=== PATIENT | female | born 1995 | race African-American/Black ===

== ENCOUNTER 2016-09-17 13:12 | Emergency (ER) | payer SELFPAY ==
[2016-09-17 14:30] VITALS: BP 100/59
== END 2016-09-17 13:43 | disposition left against medical advice (07) ==
LOC: ER 13:12
DX: Z53.21 Procedure and treatment not carried out due to patient leaving prior to being seen by health care provider (principal)

== ENCOUNTER 2016-10-01 18:17 | Emergency (ER) | payer SELFPAY ==
[2016-10-01 19:13] VITALS: BP 105/62
[2016-10-01] MEDS ORDERED: OXYCODONE-ACETAMINOPHEN 5-325 MG TABLET PO ONE ×2 (20:11→20:13)
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
[2016-10-01] MEDS ORDERED: HYDROCODONE/ACETAMINOPHEN 5-325 MG 6 TAB/DSPK PO PRN (23:01)
[2016-10-01] MEDS ORDERED: ONDANSETRON ODT 4 MG TAB (6 TAB/DSPK) PO PRN (23:01)
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
== END 2016-10-01 23:18 | disposition home or self-care (01) ==
LOC: ER 18:17
DX: S09.90XA Unspecified injury of head, initial encounter (principal); S10.93XA Contusion of unspecified part of neck, initial encounter; S99.911A Unspecified injury of right ankle, initial encounter; R51 Headache; M54.2 Cervicalgia; M25.571 Pain in right ankle and joints of right foot; M25.551 Pain in right hip; Y09 Assault by unspecified means; F17.210 Nicotine dependence, cigarettes, uncomplicated
CPT/HCPCS: 72050; 99283

== ENCOUNTER 2016-11-01 13:56 | Emergency (ER) | payer SELFPAY ==
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
[2016-11-01] MEDS ORDERED: METHOCARBAMOL 500 MG TABLET PO ONE (16:12)
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
[2016-11-01] MEDS ORDERED: NAPROXEN 250 MG TABLET PO ONE (16:29)
[2016-11-01 17:19] VITALS: BP 120/70
== END 2016-11-01 17:19 | disposition home or self-care (01) ==
LOC: ER 13:56
DX: S00.81XA Abrasion of other part of head, initial encounter (principal); S10.91XA Abrasion of unspecified part of neck, initial encounter; S00.83XA Contusion of other part of head, initial encounter; M62.838 Other muscle spasm; Y04.2XXA Assault by strike against or bumped into by another person, initial encounter; F17.200 Nicotine dependence, unspecified, uncomplicated; Z88.6 Allergy status to analgesic agent
CPT/HCPCS: 70486; 72050; 99284

== ENCOUNTER 2017-02-03 00:46 | Emergency (ER) | payer SELFPAY ==
[2017-02-03] MEDS ORDERED: NORMAL SALINE 1000 ML 1,000 ML IV ONE ×2 (05:09→06:28)
[2017-02-03] MEDS ORDERED: METOCLOPRAMIDE HCL INJ/PF 10 MG/2 ML SDV IV ONE (05:58)
--- NOTE | 2017-02-03 05:58 | ER Document Report ---
ED General - General Chief Complaint: Nausea/Vomiting/Diarrhea Stated Complaint: VOMITING/7 WEEKS Time Seen by Provider: 02/03/17 05:58 Mode of Arrival: Ambulatory Information source: Patient Notes: 21-year-old female who is 7 weeks presents with complaints of nausea and vomiting. Patient is 3 para 2 states she has been vomiting since yesterday. Denies any fevers or chills admits to intermittent sweating when she is vomiting TRAVEL OUTSIDE OF THE [place] IN LAST 30 DAYS: No - HPI Onset: Yesterday Onset/Duration: Sudden Quality of pain: No pain Severity: Mild Pain Level: Denies Associated symptoms: Nausea, Vomiting, Sweating Exacerbated by: Denies Relieved by: Denies Similar symptoms previously: No Recently seen / treated by doctor: No - Related Data Allergies/Adverse Reactions: hydrocodone [From Vicodin] Allergy (Verified 11/01/16 14:33) tramadol Allergy (Verified 11/01/16 14:33) Past Medical History - Social History Smoking Status: Never Smoker Cigarette use (# per day): No Chew tobacco use (# tins/day): No Smoking Education Provided: No Family History: Reviewed & Not Pertinent Patient has suicidal ideation: No Patient has homicidal ideation: No Neurological Medical History: Reports: 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 06/03 states had three seizures Renal/ Medical History: Denies: Hx Peritoneal Dialysis Psychiatric Medical History: Reports: Hx Attention Deficit Hyperactivity Disorder Past Surgical History: Reports: Hx Section - Immunizations Immunizations up to date: No Hx Diphtheria, Pertussis, Tetanus Vaccination: No Review of Systems - Review of Systems Notes: REVIEW OF SYSTEMS: CONSTITUTIONAL : Denies fever, chills, or sweats. Denies recent illness. EENT: Denies eye, ear, throat, or mouth pain or symptoms. Denies nasal or sinus congestion or discharge. Denies throat, tongue, or mouth swelling or difficulty swallowing. CARDIOVASCULAR: Denies chest pain. Denies palpitations or racing or irregular heart beat. Denies ankle edema. RESPIRATORY: Denies cough, cold, or chest congestion. Denies shortness of breath, difficulty breathing, or wheezing. GASTROINTESTINAL: Admits to nausea and vomiting GENITOURINARY: Denies difficulty urinating, painful urination, burning, frequency, blood in urine, or discharge. FEMALE GENITOURINARY: Denies vaginal bleeding, heavy or abnormal periods, irregular periods. Denies vaginal discharge or odor. MUSCULOSKELETAL: Denies back or neck pain or stiffness. Denies joint pain or swelling. SKIN: Denies rash, lesions or sores. HEMATOLOGIC : Denies easy bruising or bleeding. LYMPHATIC: Denies swollen, enlarged glands. NEUROLOGICAL: Denies confusion or altered mental status. Denies passing out or loss of consciousness. Denies dizziness or lightheadedness. Denies headache. Denies weakness or paralysis or loss of use of either side. Denies problems with gait or speech. Denies sensory loss, numbness, or tingling. Denies seizures. PSYCHIATRIC: Denies anxiety or stress. Denies depression, suicidal ideation, or homicidal ideation. ALL OTHER SYSTEMS REVIEWED AND NEGATIVE. PHYSICAL EXAMINATION: GENERAL: Well-appearing, well-nourished and in no acute distress. HEAD: Atraumatic, normocephalic. EYES: Pupils equal round and reactive to light, extraocular movements intact, conjunctiva are normal. ENT: Nares patent, oropharynx clear without exudates. Moist mucous membranes. NECK: Normal range of motion, supple without lymphadenopathy LUNGS: Breath sounds clear to auscultation bilaterally and equal. No wheezes rales or rhonchi. HEART: Regular rate and rhythm without murmurs ABDOMEN: Soft, nontender, nondistended abdomen. No guarding, no rebound. No masses appreciated. Female : deferred Musculoskeletal: Normal range of motion, no pitting or edema. No cyanosis. NEUROLOGICAL: Cranial nerves grossly intact. Normal speech, normal gait. Normal sensory, motor exams PSYCH: Normal mood, normal affect. SKIN: Warm, Dry, normal turgor, no rashes or lesions noted. Dictation was performed using nGAP voice recognition software Physical Exam - Vital signs Vitals: Temp Pulse Resp BP Pulse Ox 97.7 F 73 18 118/71 100 02/03/17 00:56 02/03/17 00:56 02/03/17 00:56 02/03/17 00:56 02/03/17 00:56 Course - Re-evaluation Re-evalutation: 02/03/17 08:52 Patient is noted to have ketones in the urine as well as a urinary tract infection. She will be started on antibiotics, and IV fluids and will be sent home with nausea medication as well otherwise patient looks well is in no distress and wishes to be discharged After performing a Medical Screening Examination, I estimate there is LOW risk for ACUTE APPENDICITIS, BOWEL OBSTRUCTION, ACUTE CHOLECYSTITIS, PERFORATED DIVERTICULITIS, INCARCERATED HERNIA, PANCREATITIS, PELVIC INFLAMMATORY DISEASE, PERFORATED ULCER, ECTOPIC , or TUBO-OVARIAN ABSCESS, thus I consider the discharge disposition reasonable. Also, there is no evidence or peritonitis , sepsis, or toxicity. I have reevaluated this patient multiple times and no significant life threatening changes are noted. The patient and I have discussed the diagnosis and risks, and we agree with discharging home with close follow-up with the understanding that symptoms and presentations can change. We also discussed returning to the Emergency Department immediately if new or worsening symptoms occur. We have discussed the symptoms which are most concerning (e.g., bloody stool, fever, changing or worsening pain, vomiting) that necessitate immediate return. - Vital Signs Vital signs: Temp Pulse Resp BP Pulse Ox 98.4 F 62 20 111/67 100 02/03/17 08:25 02/03/17 08:25 02/03/17 08:25 02/03/17 08:25 02/03/17 08:25 - Laboratory Result Diagrams: 02/03/17 06:58 02/03/17 06:58 Laboratory results interpreted by me: 02/03/17 02/03/17 02/03/17 05:56 06:58 06:58 WBC 11.0 H Hgb 11.5 L Hct 34.6 L RDW 21.1 H Seg Neutrophils % 89.3 H Lymphocytes % 9.0 L Monocytes % 1.5 L Absolute Neutrophils 9.8 H Chloride 108 H Carbon Dioxide 17 L Urine Protein 100 H Urine Ketones 80 H Ur Leukocyte Esterase SMALL H Urine Ascorbic Acid 20 H Urine HCG, Qual POSITIVE H Discharge - Discharge Clinical Impression: Ketonuria UTI in Qualifiers: Trimester: first trimester Qualified Code(s): O23.41 - Unspecified infection of urinary tract in , first trimester Nausea & vomiting Qualifiers: Vomiting type: unspecified Vomiting Intractability: non-intractable Qualified Code(s): R11.2 - Nausea with vomiting, unspecified Condition: Stable Disposition: HOME, SELF-CARE Instructions: Urinary Tract Infection ([facility]) Prescriptions: Metoclopramide HCl [Reglan 10 mg Tablet] 1 - 2 tab PO ASDIR PRN #25 tablet PRN Reason: Nitrofurantoin/Nitrofuran Mac [Macrobid 100 mg Capsule] 1 tab PO BID #20 capsule Referrals: [facility] [Provider Group] - Follow up tomorrow
[2017-02-03] MEDS ORDERED: ACETAMINOPHEN 325 MG TABLET PO ONE (06:11)
[2017-02-03 06:26] LABS: BILIRUBIN,URINE NEGATIVE (NEGATIVE); GLUCOSE, URINE NEGATIVE (NEGATIVE); KETONES,URINE 80 mg/dL (NEGATIVE); LEUKOCYTE ESTERASE,URINE SMALL (NEGATIVE); NITRITE,URINE NEGATIVE (NEGATIVE); PROTEIN,URINE 100 mg/dL (NEGATIVE); URINE SPECIFIC GRAVITY 1.027; UROBILINOGEN,URINE NEGATIVE mg/dL (<2.0)
[2017-02-03 06:27] LABS: APPEARANCE,URINE SLIGHTLY-CLOUDY
[2017-02-03] MEDS ORDERED: NITROFURANTOIN MONOHYD/M-CRYST 100 MG CAPSULE PO ONE (06:40)
[2017-02-03 07:10] LABS: ABSOLUTE MONOCYTES (AUTO) 0.2 10^3/uL (0.1-1.4); ABSOLUTE NEUT (AUTO) 9.8 10^3/uL (1.7-8.2); BASOPHILS % (AUTO) 0.2 % (0-2); HEMATOCRIT 34.6 % (36.0-47.0); HEMOGLOBIN 11.5 g/dL (12.0-15.5); HGB HCT DIFFERENCE -0.1; MEAN CORPUSCULAR HEMOGLOBIN 28.2 pg (27.0-33.4); MEAN CORPUSCULAR HGB CONC 33.1 g/dL (32.0-36.0); MEAN CORPUSCULAR VOLUME 85 fl (80-97); MONOCYTES % (AUTO) 1.5 % (3-13); RED BLOOD COUNT 4.07 10^6/uL (3.72-5.28); RED CELL DISTRIBUTION WIDTH 21.1 % (11.5-14.0); SEGMENTED NEUTROPHILS % (AUTO) 89.3 % (42-78)
[2017-02-03 07:26] LABS: ALANINE AMINOTRANSFERASE 15 U/L (9-52); ALBUMIN 4.5 g/dL (3.5-5.0); ALKALINE PHOSPHATASE 68 U/L (38-126); ANION GAP 15 (5-19); ASPARTATE AMINO TRANSFERASE 22 U/L (14-36); BILIRUBIN,DIRECT 0.4 mg/dL (0.0-0.4); BILIRUBIN,TOTAL 0.6 mg/dL (0.2-1.3); BLOOD UREA NITROGEN 9 mg/dL (7-20); CALCIUM 9.1 mg/dL (8.4-10.2); CARBON DIOXIDE 17 mmol/L (22-30); CHLORIDE 108 mmol/L (98-107); CREATININE RESULT 0.53 mg/dL (0.52-1.25); GLUCOSE 100 mg/dL (75-110); POTASSIUM 3.9 mmol/L (3.6-5.0); SODIUM 139.9 mmol/L (137-145); TOTAL PROTEIN 7.7 g/dL (6.3-8.2)
[2017-02-03 08:26] VITALS: BP 111/67
== END 2017-02-03 08:30 | disposition home or self-care (01) ==
LOC: ER 00:46
DX: O21.9 Vomiting of pregnancy, unspecified (principal); O23.41 Unspecified infection of urinary tract in pregnancy, first trimester; O26.891 Other specified pregnancy related conditions, first trimester; R61 Generalized hyperhidrosis; R82.4 Acetonuria; Z3A.01 Less than 8 weeks gestation of pregnancy; Z88.5 Allergy status to narcotic agent
CPT/HCPCS: 99284; 96361; 96374; 36415; 87086; 85025; 81025; 80053; 81001; J2765; J7030; J8499

== ENCOUNTER 2017-02-11 12:13 | Emergency (ER) | payer SELFPAY ==
[2017-02-11] MEDS ORDERED: POLYMYXIN B SULFATE/TMP OPH SOLN 10 ML OS ONE (14:53)
[2017-02-11] MEDS ORDERED: OXYCODONE-ACETAMINOPHEN 5-325 MG TABLET PO ONE (14:53)
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
[2017-02-11 16:33] VITALS: BP 97/58
== END 2017-02-11 16:38 | disposition home or self-care (01) ==
LOC: ER 12:13
DX: S00.12XA Contusion of left eyelid and periocular area, initial encounter (principal); S00.83XA Contusion of other part of head, initial encounter; S90.511A Abrasion, right ankle, initial encounter; Y04.2XXA Assault by strike against or bumped into by another person, initial encounter; Y92.009 Unspecified place in unspecified non-institutional (private) residence as the place of occurrence of the external cause; H57.10 Ocular pain, unspecified eye; F17.210 Nicotine dependence, cigarettes, uncomplicated; Z71.6 Tobacco abuse counseling; Z88.5 Allergy status to narcotic agent
CPT/HCPCS: 99284; 70486; J3490

== ENCOUNTER 2017-03-07 15:15 | Emergency (ER) | payer OTHER ==
[2017-03-07] MEDS ORDERED: SILVER SULFADIAZINE 1% CREAM 50 GM TP ONE ×2 (16:00→17:37)
[2017-03-07] MEDS ORDERED: LIDOCAINE 4% INJ/PF (40 MG/ML) 5 ML AMPUL TOP ONE (16:00)
[2017-03-07] MEDS ORDERED: MORPHINE SULFATE 10 MG/ML INJ IM ONE (16:01)
[2017-03-07] MEDS ORDERED: CEPHALEXIN 500 MG CAPSULE PO ONE (16:01)
[2017-03-07] MEDS ORDERED: LIDOCAINE 4%/TETRACAINE 0.5%/EPI 0.18% 5 ML TOPICAL SOLN TOP ONE (16:09)
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
== END 2017-03-07 18:10 | disposition home or self-care (01) ==
LOC: ER 15:15
DX: S80.211A Abrasion, right knee, initial encounter (principal); S30.810A Abrasion of lower back and pelvis, initial encounter; S20.419A Abrasion of unspecified back wall of thorax, initial encounter; W17.89XA Other fall from one level to another, initial encounter; Y93.39 Activity, other involving climbing, rappelling and jumping off
CPT/HCPCS: 99283; 96372; J2270; J3490 ×2

== ENCOUNTER 2017-03-11 21:03 | Emergency (ER) | payer SELFPAY | END 2017-03-11 21:25 | disposition left against medical advice (07) | LOC: ER 21:03 | DX: Z53.21 Procedure and treatment not carried out due to patient leaving prior to being seen by health care provider (principal) ==

== ENCOUNTER → 2017-04-03 | Outpatient (CLI) | payer MEDICAID ==
--- NOTE | 2017-04-05 15:09 | RADIOLOGY REPORT (SQ) ---
EXAM DESCRIPTION: U/S OB 14+ TRNABD 1GES W/O DOP COMPLETED DATE/TIME: 04/03/2017, 1541 hours REASON FOR STUDY: Encounter for supervision of other normal , second trimester COMPARISON: No previous this TECHNIQUE: Transabdominal and endovaginal scanning was performed, including grayscale, color flow, a nd cine images saved to pacs LIMITATIONS: Limited view of the 4 chamber cardiac view, kidneys, bladder, posterior fossa str uctures related to small size and movement. FINDINGS: Living 15 week 5 day fetus, estimated due date 09/20/2017. heart rate 147 beats per m inute. Anatomic survey including three-vessel cord, cord insertion, stomach, spine, cerebral ventricles, claire ateral upper and lower extremities well-visualized cava normal. Limited view of posterior fossa stru ctures, 4 chamber cardiac view, kidneys, bladder. Variable presentation Adequate amniotic fluid, largest pocket 3.7 cm. Low lying anterior maternal left placenta, with marginal previa on endovaginal scanning. Cervix is closed, 5.5 cm in length. IMPRESSION: Low-lying anterior placenta, with marginal previa on endovaginal scanning. Living 15 week 5 day fetus, due date 09/20/2017.
== END ==
LOC: RAD 14:54
PROVIDERS: ATTEND Nurse Practitioner Women's Health
DX: Z34.82 Encounter for supervision of other normal pregnancy, second trimester (principal)
CPT/HCPCS: 76805

== ENCOUNTER 2017-05-04 06:28 | Emergency (ER) | payer MEDICAID ==
[2017-05-04 06:36] VITALS: BP 120/67
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
[2017-05-04] MEDS ORDERED: ACETAMINOPHEN 325 MG TABLET PO ONE (07:47)
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
== END 2017-05-04 08:39 | disposition home or self-care (01) ==
LOC: ER 06:28
DX: S00.12XA Contusion of left eyelid and periocular area, initial encounter (principal); S09.93XA Unspecified injury of face, initial encounter; F17.210 Nicotine dependence, cigarettes, uncomplicated; Y04.2XXA Assault by strike against or bumped into by another person, initial encounter; Z88.6 Allergy status to analgesic agent
CPT/HCPCS: 99284; 70200; J3490

== ENCOUNTER 2017-06-02 16:45 | Inpatient (IN) | payer MEDICAID ==
[2017-06-02] MEDS ORDERED: ONDANSETRON HCL INJ/PF 4 MG/2 ML SDV IV ONE (17:07)
[2017-06-02] MEDS ORDERED: NORMAL SALINE 1000 ML 1,000 ML IV PRN ×2 (17:07→18:54)
--- NOTE | 2017-06-02 17:10 | ER Document Report ---
ED Medical Screen (RME) - General Chief Complaint: Vomiting/Diarrhea Stated Complaint: POSSIBLE DEHYDRATION Time Seen by Provider: 06/02/17 17:07 Mode of Arrival: Ambulatory Information source: Patient TRAVEL OUTSIDE OF THE [place] IN LAST 30 DAYS: No - HPI Patient complains to provider of: Nausea, vomiting, diarrhea, fever Notes: 06/02/17 17:10 Patient is a 21-year-old female presenting to the emergency room today complaining of nausea, vomiting, diarrhea, urinary frequency, noted to have a fever in triage area, she is currently 23 weeks , she denies any pelvic cramping or bleeding - Related Data Allergies/Adverse Reactions: hydrocodone [From Vicodin] Allergy (Verified 06/02/17 16:57) tramadol Allergy (Verified 06/02/17 16:57) Past Medical History Neurological Medical History: Reports: 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 06/03 states had three seizures Renal/ Medical History: Denies: Hx Peritoneal Dialysis Psychiatric Medical History: Reports: Hx Anxiety, Hx Attention Deficit Hyperactivity Disorder Past Surgical History: Reports: Hx Section - Immunizations Immunizations up to date: Yes Hx Diphtheria, Pertussis, Tetanus Vaccination: Yes - 2016 Physical Exam - Vital signs Vitals: Temp Pulse Resp BP Pulse Ox 101.4 F H 108 H 18 116/59 L 97 06/02/17 16:57 06/02/17 16:57 06/02/17 16:57 06/02/17 16:57 06/02/17 16:57 Course - Vital Signs Vital signs: Temp Pulse Resp BP Pulse Ox 101.4 F H 108 H 18 116/59 L 97 06/02/17 16:57 06/02/17 16:57 06/02/17 16:57 06/02/17 16:57 06/02/17 16:57
[2017-06-02 18:06] LABS: APPEARANCE,URINE CLOUDY; BILIRUBIN,URINE NEGATIVE (NEGATIVE); GLUCOSE, URINE NEGATIVE (NEGATIVE); KETONES,URINE 20 mg/dL (NEGATIVE); LEUKOCYTE ESTERASE,URINE SMALL (NEGATIVE); NITRITE,URINE NEGATIVE (NEGATIVE); PROTEIN,URINE 100 mg/dL (NEGATIVE); URINE SPECIFIC GRAVITY 1.016
[2017-06-02 18:48] LABS: HEMATOCRIT 24.4 % (36.0-47.0); HEMOGLOBIN 8.6 g/dL (12.0-15.5); HGB HCT DIFFERENCE 1.4; MEAN CORPUSCULAR HEMOGLOBIN 31.2 pg (27.0-33.4); MEAN CORPUSCULAR HGB CONC 35.3 g/dL (32.0-36.0); MEAN CORPUSCULAR VOLUME 88 fl (80-97); RED BLOOD COUNT 2.77 10^6/uL (3.72-5.28); RED CELL DISTRIBUTION WIDTH 14.8 % (11.5-14.0); WHITE BLOOD COUNT 16.9 10^3/uL (4.0-10.5)
[2017-06-02] MEDS ORDERED: ACETAMINOPHEN 325 MG TABLET PO ONE (18:52)
[2017-06-02 19:05] LABS: ALANINE AMINOTRANSFERASE 17 U/L (9-52); ALBUMIN 3.3 g/dL (3.5-5.0); ALKALINE PHOSPHATASE 97 U/L (38-126); ANION GAP 12 (5-19); ASPARTATE AMINO TRANSFERASE 16 U/L (14-36); BAND NEUTROPHILS % (MANUAL) 2 % (3-5); BASOPHILS % (MANUAL) 0 % (0-2); BILIRUBIN,DIRECT 0.5 mg/dL (0.0-0.4); BILIRUBIN,TOTAL 0.7 mg/dL (0.2-1.3); BLOOD UREA NITROGEN 4 mg/dL (7-20); CALCIUM 8.3 mg/dL (8.4-10.2); CARBON DIOXIDE 19 mmol/L (22-30); CHLORIDE 102 mmol/L (98-107); EOSINOPHILS % (MANUAL) 0 % (0-6); GLUCOSE 79 mg/dL (75-110); LIPASE 12.5 U/L (23-300); LYMPHOCYTES % (MANUAL) 12 % (13-45); POTASSIUM 3.3 mmol/L (3.6-5.0); SODIUM 133.2 mmol/L (137-145); TOTAL CELLS COUNTED 100; TOTAL PROTEIN 6.3 g/dL (6.3-8.2)
[2017-06-02 19:08] LABS: ANISOCYTOSIS SLIGHT; OVALOCYTES 1+; POIKILOCYTOSIS 1+; POLYCHROMASIA 1+; TOXIC VACUOLATION PRESENT
[2017-06-02] MEDS ORDERED: CEFTRIAXONE INJ 1000 MG VIAL IV ONE (19:08)
--- NOTE | 2017-06-02 19:16 | ER Document Report ---
ED GI/ - General Chief Complaint: Vomiting/Diarrhea Stated Complaint: POSSIBLE DEHYDRATION Time Seen by Provider: 06/02/17 17:07 Mode of Arrival: Ambulatory Information source: Patient TRAVEL OUTSIDE OF THE [place] IN LAST 30 DAYS: No - HPI Patient complains to provider of: Dysuria, Flank pain, , Vomiting Timing/Duration: Gradual Quality of pain: Achy Severity at maximum: Moderate Severity in ED: Moderate Pain Level: 3 Location: Right flank Menstrual period history: Associated symptoms: Fever, Nausea, Vomiting Exacerbated by: Denies Relieved by: Denies Similar symptoms previously: No Notes: 17:10 Patient is a 21-year-old female presenting to the emergency room today complaining of nausea, vomiting, diarrhea, urinary frequency with low back pain and flank pain, noted to have a fever in triage area, she is currently 23 weeks , she denies any pelvic cramping or bleeding - Related Data Allergies/Adverse Reactions: hydrocodone [From Vicodin] Allergy (Verified 06/02/17 16:57) tramadol Allergy (Verified 06/02/17 16:57) Past Medical History - General Information source: Patient - Social History Smoking Status: Current Every Day Smoker Chew tobacco use (# tins/day): No Frequency of alcohol use: None Drug Abuse: None Family History: Hypertension, Malignancy. denies: Arthritis, CAD, COPD, CVA, DM , Hyperlipidemia, Thyroid Disfunction Neurological Medical History: Reports: 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 06/03 states had three seizures Renal/ Medical History: Denies: Hx Peritoneal Dialysis Psychiatric Medical History: Reports: Hx Anxiety, Hx Attention Deficit Hyperactivity Disorder Past Surgical History: Reports: Hx Section - Immunizations Immunizations up to date: Yes Hx Diphtheria, Pertussis, Tetanus Vaccination: Yes - 2017 Review of Systems - Review of Systems Constitutional: Fever EENT: No symptoms reported Cardiovascular: No symptoms reported Respiratory: No symptoms reported Gastrointestinal: See HPI Genitourinary: See HPI Female Genitourinary: No symptoms reported Musculoskeletal: No symptoms reported Skin: No symptoms reported Hematologic/Lymphatic: No symptoms reported Neurological/Psychological: No symptoms reported -: Yes All other systems reviewed and negative Physical Exam - Vital signs Vitals: Temp Pulse Resp BP Pulse Ox 101.4 F H 108 H 18 116/59 L 97 06/02/17 16:57 06/02/17 16:57 06/02/17 16:57 06/02/17 16:57 06/02/17 16:57 Interpretation: Tachycardic, Febrile - General General appearance: Appears well, Alert - HEENT Head: Normocephalic, Atraumatic Eyes: Normal Pupils: PERRL - Respiratory Respiratory status: No respiratory distress Chest status: Nontender Breath sounds: Normal Chest palpation: Normal - Cardiovascular Rhythm: Regular Heart sounds: Normal auscultation Murmur: No - Abdominal Inspection: Gravid female Distension: No distension Bowel sounds: Normal Tenderness: Tender - Suprapubic Organomegaly: No organomegaly - Back Back: Normal, CVA tenderness - Right side - Extremities General upper extremity: Normal inspection, Nontender, Normal color, Normal ROM , Normal temperature General lower extremity: Normal inspection, Nontender, Normal color, Normal ROM , Normal temperature, Normal weight bearing. No: Jonathon's sign - Neurological Neuro grossly intact: Yes Cognition: Normal Orientation: AAOx4 [place] Coma Scale Eye Opening: Spontaneous Camila Coma Scale Verbal: Oriented Camila Coma Scale Motor: Obeys Commands Cam[place] Coma Scale Total: 15 Speech: Normal Motor strength normal: LUE, RUE, LLE, RLE Sensory: Normal - Psychological Associated symptoms: Normal affect, Normal mood - Skin Skin Temperature: Warm Skin Moisture: Dry Skin Color: Normal Course - Re-evaluation Re-evalutation: 06/02/17 19:44 Patient lab values with leukocytosis, positive for UTI, as well as low bicarb consistent with dehydration, on initial evaluation patient had flank pain with right CVA tenderness, on reevaluation she does report feeling much better, however given her symptoms and lab values I did discuss patient with the on- call TELEPHONE OPERATORS SUPERVISOR who agrees to admit for further evaluation and treatment of likely pyelonephritis, recommended antibiotics be given with Rocephin 1 g every 12 hours, initial dose has been ordered in the emergency room - Vital Signs Vital signs: Temp Pulse Resp BP Pulse Ox 101.4 F H 108 H 18 116/59 L 97 06/02/17 16:57 06/02/17 16:57 06/02/17 16:57 06/02/17 16:57 06/02/17 16:57 - Laboratory Result Diagrams: 06/02/17 18:20 06/02/17 18:20 Laboratory results interpreted by me: 06/02/17 06/02/17 06/02/17 17:30 18:20 18:20 WBC 16.9 H RBC 2.77 L Hgb 8.6 L Hct 24.4 L RDW 14.8 H Seg Neuts % (Manual) 82 H Band Neutrophils % 2 L Lymphocytes % (Manual) 12 L Abs Neuts (Manual) 14.2 H Sodium 133.2 L Potassium 3.3 L Carbon Dioxide 19 L BUN 4 L Calcium 8.3 L Direct Bilirubin 0.5 H Albumin 3.3 L Lipase 12.5 L Urine Protein 100 H Urine Ketones 20 H Urine Blood MODERATE H Urine Urobilinogen 4.0 H Ur Leukocyte Esterase SMALL H Urine Ascorbic Acid 20 H - Transfer of Care Care transferred to following provider: Dr. Graff Discharge - Discharge Clinical Impression: Dehydration Nausea and vomiting Qualifiers: Vomiting type: unspecified Vomiting Intractability: non-intractable Qualified Code(s): R11.2 - Nausea with vomiting, unspecified Pyelonephritis affecting Qualifiers: Trimester: second trimester Qualified Code(s): O23.02 - Infections of kidney in , second trimester Condition: Stable Disposition: ADMITTED INPATIENT Admitting Provider: [facility] Admitted: Labor and Delivery - 2nd floor
--- NOTE | 2017-06-02 23:07 | PDOC H&P ---
History of Present Illness Admission Date/PCP: 06/02/17 19:39 JOSE GUADALUPE JUNG MD History of Present Illness: SOURAV ALVAREZ is a 21 year old female 17:10 Patient is a 21-year-old female presenting to the emergency room today complaining of nausea, vomiting, diarrhea, urinary frequency with low back pain and flank pain, noted to have a fever in triage area, she is currently 23 weeks , she denies any pelvic cramping or bleeding found to have elevated WBC and CVA tenderness with 23 wk gestation. Past Medical History Neurological Medical History: Reports: Seizures - From Xanax withdrawal. states had three seizures Psychiatric Medical History: Reports: Attention Deficit Hyperactivity Disorder Past Surgical History Past Surgical History: Reports: Section Social History Smoking Status: Current Every Day Smoker - Advance Directive Resuscitation Status: Full Code Family History Family History: Hypertension, Malignancy. denies: Arthritis, CAD, COPD, CVA, DM , Hyperlipidemia, Thyroid Disfunction Parental Family History Reviewed: Yes Children Family History Reviewed: Yes Sibling(s) Family History Reviewed.: Yes Medication/Allergy Home Medications: No Home Medications 05/04/17 Allergies/Adverse Reactions: hydrocodone [From Vicodin] Allergy (Verified 06/02/17 16:57) tramadol Allergy (Verified 06/02/17 16:57) Review of Systems Constitutional: PRESENT: as per HPI Physical Exam - Physical Exam Vital Signs: Temp Pulse Resp BP Pulse Ox 101.4 F H 108 H 18 116/59 L 97 06/02/17 16:57 06/02/17 16:57 06/02/17 16:57 06/02/17 16:57 06/02/17 16:57 General appearance: PRESENT: mild distress Head exam: PRESENT: atraumatic GI/Abdominal exam: PRESENT: soft Musculoskeletal exam: PRESENT: ambulatory, full ROM Additional comments: CVA tenderness present on left - Obstetrical Exam Fundal Height: u/u - u/2 Tender: No Assessment & Plan - Diagnosis (1) Dehydration Is this a current diagnosis for this admission?: Yes (2) Nausea and vomiting Qualifiers: Vomiting type: unspecified Vomiting Intractability: non-intractable Qualified Code(s): R11.2 - Nausea with vomiting, unspecified Is this a current diagnosis for this admission?: Yes (3) Pyelonephritis affecting Qualifiers: Trimester: second trimester Qualified Code(s): O23.02 - Infections of kidney in , second trimester Is this a current diagnosis for this admission?: Yes - Inpatient Certification Based on my medical assessment, after consideration of the patient's comorbidities, presenting symptoms, or acuity I expect that the services needed warrant INPATIENT care.: Yes I certify that my determination is in accordance with my understanding of Medicare's requirements for reasonable and necessary INPATIENT services [42 CFR 412.3e].: Yes Medical Necessity: Need Close Monitoring Due to Risk of Patient Decompensation, Need For IV Fluids, Need for IV Antibiotics - increased risks of ARDS with pyelonephritis and 2nd trimester - Plan Summary Plan Summary: admit for IV antibiotics and antipyretics. monitor closely for decompensation and ARDS signs/symptoms. d/c home when improves.
[2017-06-03] MEDS ORDERED: INFLUENZA ADLT QUAD (36MOS+) 2017-18 VAC 0.5 ML SYR IM PRN ×2 (00:01→08:30)
[2017-06-03] MEDS: RINGERS SOLUTION,LACTATED 1,000 ML IV PRN ×4 (00:37→23:40)
[2017-06-03] MEDS: ACETAMINOPHEN 325 MG TABLET PO SCH ×3 (06:53→17:53)
[2017-06-03 07:09] LABS: ABSOLUTE MONOCYTES (AUTO) 0.8 10^3/uL (0.1-1.4); ABSOLUTE NEUT (AUTO) 9.1 10^3/uL (1.7-8.2); BASOPHILS % (AUTO) 0.2 % (0-2); EOSINOPHILS % (AUTO) 0.2 % (0-6); HEMATOCRIT 20.3 % (36.0-47.0); HGB HCT DIFFERENCE 1.3; LYMPHOCYTES % (AUTO) 9.3 % (13-45); MEAN CORPUSCULAR HEMOGLOBIN 31.6 pg (27.0-33.4); MEAN CORPUSCULAR HGB CONC 35.7 g/dL (32.0-36.0); MEAN CORPUSCULAR VOLUME 89 fl (80-97); MONOCYTES % (AUTO) 7.2 % (3-13); RED BLOOD COUNT 2.29 10^6/uL (3.72-5.28); RED CELL DISTRIBUTION WIDTH 15.2 % (11.5-14.0); SEGMENTED NEUTROPHILS % (AUTO) 83.1 % (42-78)
[2017-06-03 07:28] LABS: HEMOGLOBIN 7.2 g/dL (12.0-15.5)
--- NOTE | 2017-06-03 08:47 | PDOC PROGRESS REPORT ---
Subjective Progress Note for:: 06/03/17 Subjective:: She has back pain but it is improved. No fevers noted. Physical Exam - Physical Exam Vital Signs: Temp Pulse Resp BP Pulse Ox 97.7 F 86 20 96/50 L 100 06/03/17 04:09 06/03/17 04:09 06/03/17 04:09 06/03/17 04:09 06/03/17 04:09 Intake & Output 06/02/17 06/03/17 06/04/17 06:59 06:59 06:59 Intake Total 350 Balance 350 General appearance: PRESENT: no acute distress Head exam: PRESENT: atraumatic GI/Abdominal exam: PRESENT: normal bowel sounds, soft. ABSENT: distended, guarding, mass, organolmegaly, rebound, tenderness Result Laboratory Results: 06/03/17 06:18 06/03/17 06:18 WBC 11.0 H RBC 2.29 L Hgb 7.2 L Hct 20.3 L MCV 89 MCH 31.6 MCHC 35.7 RDW 15.2 H Plt Count 153 Seg Neutrophils % 83.1 H Lymphocytes % 9.3 L Monocytes % 7.2 Eosinophils % 0.2 Basophils % 0.2 Absolute Neutrophils 9.1 H Absolute Lymphocytes 1.0 Absolute Monocytes 0.8 Absolute Eosinophils 0.0 Absolute Basophils 0.0 Assessment & Plan - Diagnosis (1) Pyelonephritis affecting Qualifiers: Trimester: second trimester Qualified Code(s): O23.02 - Infections of kidney in , second trimester Is this a current diagnosis for this admission?: Yes Plan: Continue with the IV fluids and antibiotics for 36 hrs. Change to oral abx when sensitivities are back.
[2017-06-03] MEDS: DOCUSATE SODIUM 100 MG CAPSULE PO SCH ×2 (09:50→17:42)
[2017-06-03] MEDS: FERROUS SULFATE 325 MG TABLET PO SCH ×2 (09:50→17:41)
[2017-06-03] MEDS: ASCORBIC ACID 500 MG TABLET PO SCH ×2 (09:50→17:42)
[2017-06-03] MEDS: CEFTRIAXONE 1 GM/D5W RTU 1 GM/50 ML RTUPB IV SCH ×2 (09:51→17:43)
[2017-06-03] MEDS ORDERED: OXYCODONE-ACETAMINOPHEN 5-325 MG TABLET PO PRN ×2 (21:47→22:23)
[2017-06-04] MEDS: ACETAMINOPHEN 325 MG TABLET PO SCH ×2 (06:12→12:24)
[2017-06-04] MEDS: DOCUSATE SODIUM 100 MG CAPSULE PO SCH (09:52)
[2017-06-04] MEDS: CEFTRIAXONE 1 GM/D5W RTU 1 GM/50 ML RTUPB IV SCH (09:52)
[2017-06-04] MEDS: ASCORBIC ACID 500 MG TABLET PO SCH (09:52)
[2017-06-04] MEDS: FERROUS SULFATE 325 MG TABLET PO SCH (09:52)
--- NOTE | 2017-06-04 11:46 | PDOC DISCHARGE SUMMARY ---
Final Diagnosis Discharge Date: 06/04/17 - Final Diagnosis (1) Dehydration Is this a current diagnosis for this admission?: Yes (2) Pyelonephritis affecting Is this a current diagnosis for this admission?: Yes Discharge Data - Discharge Medication Home Medications: No Home Medications 05/04/17 Reason(s) for Admission: Other - Diagnosis Test Laboratory: Temp Pulse Resp BP Pulse Ox 97.6 F 90 18 105/56 L 100 06/04/17 10:56 06/04/17 10:56 06/04/17 10:56 06/04/17 10:56 06/04/17 10:56 - Discharge information/Instructions Discharge Activity: Activity As Tolerated Discharge Diet: Regular Disposition: HOME, SELF-CARE Follow up with: [facility] in: 1 - please review all precautions pt to complete antibiotics increase iron in diet and start iron bid with calcium start keflex 500 mg po bid x 7 days
--- NOTE | 2017-06-04 11:51 | PDOC PROGRESS REPORT ---
Subjective-OB Subjective: Post Delivery Day: 21 year old. Denies any needs at this time pt reports minimal back pain no pain meds since last night reports urine clear reviewed sensitivities vss- afebrile mild cvat left side reviewed with pt to increase iron in diet- severely anemic keflex 500mg po bid x 7 days f/ u with ob in 7 days Physical Exam (OB) Vital Signs: Temp Pulse Resp BP Pulse Ox 97.6 F 90 18 105/56 L 100 06/04/17 10:56 06/04/17 10:56 06/04/17 10:56 06/04/17 10:56 06/04/17 10:56 Intake & Output 06/03/17 06/04/17 06/05/17 06:59 06:59 06:59 Intake Total 2029 Balance 2029 - Abdomen Hernia Present: No Fundal Height: u/u - u/2 Assessment and Plan(PN) - Assessment and Plan (1) Dehydration Is this a current diagnosis for this admission?: Yes (2) Pyelonephritis affecting Qualifiers: Trimester: second trimester Qualified Code(s): O23.02 - Infections of kidney in , second trimester Is this a current diagnosis for this admission?: Yes
[2017-06-04 12:02] VITALS: BP 93/50
== END 2017-06-04 13:13 | disposition home or self-care (01) | DRG 781 ==
LOC: ER 16:45 → INTOOBSV 19:39 → EH 19:39 → 2S 21:05 → OBSVTOIN 06-03 15:07
PROVIDERS: ADMIT Obstetrics & Gynecology; ATTEND Obstetrics & Gynecology
DX: O23.02 Infections of kidney in pregnancy, second trimester (principal); O26.892 Other specified pregnancy related conditions, second trimester; E86.0 Dehydration; O99.012 Anemia complicating pregnancy, second trimester; D64.9 Anemia, unspecified; O99.332 Smoking (tobacco) complicating pregnancy, second trimester; F17.210 Nicotine dependence, cigarettes, uncomplicated; Z3A.23 23 weeks gestation of pregnancy
CPT/HCPCS: 36415; 80053; 81001; 83690; 85025; 87086; 87088; 87186; 96361; 96374; 99285; J0696; J2405; J7030; J7120

== ENCOUNTER 2017-08-19 15:36 | Emergency (ER) | payer MEDICAID ==
[2017-08-19 15:46] VITALS: BP 119/71
[2017-08-19] MEDS ORDERED: ONDANSETRON 4 MG TAB.RAPDIS PO ONE (16:12)
--- NOTE | 2017-08-19 16:13 | ER Document Report ---
ED Medical Screen (RME) - General Chief Complaint: Nausea/Vomiting/Diarrhea Stated Complaint: VOMITING Time Seen by Provider: 08/19/17 16:08 Notes: 22-year-old female patient complains of nausea vomiting diarrhea for 2 days. She has not been having nausea vomiting from anytime recently. She is 34 weeks . No fevers, no URI symptoms. I have greeted and performed a rapid initial assessment of this patient. A comprehensive ED assessment and evaluation of the patient, analysis of test results and completion of the medical decision making process will be conducted by additional ED providers. TRAVEL OUTSIDE OF THE [place] 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 06/03 states had three seizures Renal/ Medical History: Denies: Hx Peritoneal Dialysis Psychiatric Medical History: Reports: Hx Anxiety, Hx Attention Deficit Hyperactivity Disorder Past Surgical History: Reports: Hx Section - Immunizations Immunizations up to date: Yes Hx Diphtheria, Pertussis, Tetanus Vaccination: Yes - 2017 History of Influenza Vaccine for 05/2017 - 10/2017 Season: Refused Physical Exam - Vital signs Vitals: Temp Pulse Resp BP Pulse Ox 98.1 F 88 14 119/71 100 08/19/17 15:44 08/19/17 15:44 08/19/17 15:44 08/19/17 15:44 08/19/17 15:44 Course - Vital Signs Vital signs: Temp Pulse Resp BP Pulse Ox 98.1 F 88 14 119/71 100 08/19/17 15:44 08/19/17 15:44 08/19/17 15:44 08/19/17 15:44 08/19/17 15:44
[2017-08-19] MEDS ORDERED: NORMAL SALINE 1000 ML 1,000 ML IV PRN (16:14)
--- NOTE | 2017-08-19 16:17 | ER Document Report ---
ED GI/ - General Chief Complaint: Nausea/Vomiting/Diarrhea Stated Complaint: VOMITING Time Seen by Provider: 08/19/17 16:08 Information source: Patient Notes: This 22-year-old female who is 34 weeks comes emergency room complaining of nausea vomiting and diarrhea for the past 2 days. She has not had nausea vomiting from in quite some time. There is no fevers, there is no URI symptoms. She reports a sister has had flu symptoms, but no one has had gastroenteritis. TRAVEL OUTSIDE OF THE [place] IN LAST 30 DAYS: No - Related Data Allergies/Adverse Reactions: hydrocodone [From Vicodin] Allergy (Verified 08/19/17 16:03) tramadol Allergy (Verified 08/19/17 16:03) Past Medical History - General Information source: Patient - Social History Smoking Status: Current Every Day Smoker Cigarette use (# per day): Yes Chew tobacco use (# tins/day): No Frequency of alcohol use: None Drug Abuse: None Lives with: Family Family History: Hypertension, Malignancy Patient has suicidal ideation: No Patient has homicidal ideation: No - Past Medical History Cardiac Medical History: Reports: None Pulmonary Medical History: Reports: None EENT Medical History: Reports: None Neurological Medical History: Reports: 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 06/03 states had three seizures Endocrine Medical History: Reports: None Renal/ Medical History: Reports: None GI Medical History: Reports: None Musculoskeltal Medical History: Reports None Psychiatric Medical History: Reports: Hx Anxiety, Hx Attention Deficit Hyperactivity Disorder Past Surgical History: Reports: Hx Section - Immunizations Immunizations up to date: Yes Hx Diphtheria, Pertussis, Tetanus Vaccination: Yes - 2016 Review of Systems - Review of Systems Constitutional: No symptoms reported EENT: No symptoms reported Cardiovascular: No symptoms reported Respiratory: No symptoms reported Gastrointestinal: See HPI, Diarrhea, Nausea, Vomiting Genitourinary: No symptoms reported Female Genitourinary: - 34 weeks Musculoskeletal: No symptoms reported Skin: No symptoms reported Hematologic/Lymphatic: No symptoms reported Neurological/Psychological: No symptoms reported Physical Exam - Vital signs Vitals: Temp Pulse Resp BP Pulse Ox 98.1 F 88 14 119/71 100 08/19/17 15:44 08/19/17 15:44 08/19/17 15:44 08/19/17 15:44 08/19/17 15:44 Interpretation: Normal - General General appearance: Appears well, Alert In distress: None - HEENT Head: Normocephalic, Atraumatic Eyes: Normal Pupils: PERRL Mucous membranes: Normal Neck: Normal - Respiratory Respiratory status: No respiratory distress - Cardiovascular Rhythm: Regular - Abdominal Inspection: Gravid female Bowel sounds: Normal Tenderness: Nontender - Back Back: Normal - Extremities General upper extremity: Normal inspection General lower extremity: Normal inspection - Neurological Neuro grossly intact: Yes - Psychological Associated symptoms: Normal affect, Normal mood - Skin Skin Temperature: Warm Skin Moisture: Dry Skin Color: Normal Course - Re-evaluation Re-evalutation: 08/19/17 17:18 The emergency room is packed full and there are no beds available. The patient was placed in a chair in the area and IV fluids were started. She is about skilled nursing through [facility] and wants to leave because she says her back hurts. It appears that her lab work was never drawn. I told her that decision was up to her that we could not make her stay for IV fluids despite her claiming she has had nausea vomiting diarrhea for 2 days. She will leave [facility] and the nurse was instructed to get her signature on the paperwork. She was advised that if she is that dehydrated, that IV fluids would be in her best interest and the baby's best interest. - Vital Signs Vital signs: Temp Pulse Resp BP Pulse Ox 98.1 F 88 14 119/71 100 08/19/17 15:44 08/19/17 15:44 08/19/17 15:44 08/19/17 15:44 08/19/17 15:44 Discharge - Discharge Clinical Impression: Nausea, vomiting and diarrhea Condition: Stable Disposition: AGAINST MEDICAL ADVICE
== END 2017-08-19 17:20 | disposition left against medical advice (07) ==
LOC: ER 15:36
DX: O21.2 Late vomiting of pregnancy (principal); O26.893 Other specified pregnancy related conditions, third trimester; R19.7 Diarrhea, unspecified; O99.89 Other specified diseases and conditions complicating pregnancy, childbirth and the puerperium; M54.9 Dorsalgia, unspecified; O99.333 Smoking (tobacco) complicating pregnancy, third trimester; F17.210 Nicotine dependence, cigarettes, uncomplicated; Z3A.34 34 weeks gestation of pregnancy; Z53.29 Procedure and treatment not carried out because of patient's decision for other reasons; Z88.5 Allergy status to narcotic agent
CPT/HCPCS: 99284; S0119; J7030

== ENCOUNTER 2017-08-26 07:18 | Emergency (ER) | payer MEDICAID ==
--- NOTE | 2017-08-26 07:47 | ER Document Report ---
ED Fall - General Chief Complaint: Fall Stated Complaint: FALL Time Seen by Provider: 08/26/17 07:40 Notes: This is a 22-year-old female patient states that she slipped and fell. Hit her forehead. Denies any loss of consciousness. Denies any nausea, vomiting. Denies any other injury. No lacerations. Patient states that she is 38 weeks . Dates that she needs some Percocet. States she has been taking Percocet during her . TRAVEL OUTSIDE OF THE [place] IN LAST 30 DAYS: No - HPI Occurred: Just prior to arrival Where: Home Context: Tripped Associated symptoms: None Location of injury/pain: Head Quality of pain: Achy Severity: Mild Prehospital interventions: No: C-collar, Backboard - Related data Allergies/Adverse Reactions: hydrocodone [From Vicodin] Allergy (Verified 08/19/17 16:03) tramadol Allergy (Verified 08/19/17 16:03) Past Medical History - General Information source: Patient - Social History Smoking Status: Current Every Day Smoker Frequency of alcohol use: None Drug Abuse: None Lives with: Family Family History: Reviewed & Not Pertinent, Hypertension, Malignancy - Past Medical History Cardiac Medical History: Reports: None Pulmonary Medical History: Reports: None EENT Medical History: Reports: None Neurological Medical History: Reports: None, 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 05/28/16 states had three seizures Renal/ Medical History: Denies: Hx Peritoneal Dialysis Malignancy Medical History: Reports: None GI Medical History: Reports: None Musculoskeltal Medical History: Reports None Skin Medical History: Reports None Psychiatric Medical History: Reports: Hx Anxiety, Hx Attention Deficit Hyperactivity Disorder Past Surgical History: Reports: Hx Section - Immunizations Immunizations up to date: Yes Hx Diphtheria, Pertussis, Tetanus Vaccination: Yes - 2016 Review of Systems - Review of Systems Constitutional: No symptoms reported EENT: No symptoms reported Cardiovascular: No symptoms reported Respiratory: No symptoms reported Gastrointestinal: No symptoms reported Genitourinary: No symptoms reported Female Genitourinary: No symptoms reported Musculoskeletal: No symptoms reported Skin: No symptoms reported, Other - Contusion on forehead Hematologic/Lymphatic: No symptoms reported Neurological/Psychological: No symptoms reported Physical Exam - Vital signs Interpretation: Normal - General General appearance: Appears well, Alert. No: Lethargic, Unresponsive In distress: None - HEENT Head: Normocephalic, Atraumatic Eyes: Normal Conjunctiva: Normal Cornea: Normal Extraocular movements intact: Yes Pupils: PERRL Fundascopic: Normal External canal: Normal Tympanic membrane: Normal Neck: Normal - Respiratory Respiratory status: No respiratory distress Chest status: Nontender Breath sounds: Normal Chest palpation: Normal - Cardiovascular Rhythm: Regular Heart sounds: Normal auscultation Murmur: No - Abdominal Inspection: Normal Distension: No distension Bowel sounds: Normal Tenderness: Nontender Organomegaly: No organomegaly - Back Back: Normal, Nontender - Extremities General upper extremity: Normal inspection, Nontender, Normal color, Normal ROM , Normal temperature General lower extremity: Normal inspection, Nontender, Normal color, Normal ROM , Normal temperature, Normal weight bearing. 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 small. No obvious abrasions. Skin Moisture: Dry Skin Color: Normal Course - Re-evaluation Re-evalutation: 08/26/17 07:53 Patient is well-appearing. Normal neurological exam. Small contusion on the forehead. No other injuries. Patient is 38 weeks . Will get heart tones. Do not feel compelled at this time to do advanced imaging studies based on a fall with no significant injury, no loss of consciousness. Normal neurological exam and the risk for exposure of radiation to the fetus. Patient was asked explained all of this. Patient asking for narcotics. I have advised her against this as she is 38 weeks . States that she has been taking narcotics. Of note there is a significant other lying in bed with her who is completely asleep the whole time. There was some concern that patient was overly sedated at this time which could have contributed to her fall. Do not feel comfortable giving her anything stronger. Will advise her against anything otherwise and will discharge her at this time in stable condition. Discharge - Discharge Clinical Impression: Closed head injury Qualifiers: Encounter type: initial encounter Qualified Code(s): S09.90XA - Unspecified injury of head, initial encounter Traumatic hematoma of forehead Qualifiers: Encounter type: initial encounter Qualified Code(s): S00.83XA - Contusion of other part of head, initial encounter Condition: Good Disposition: HOME, SELF-CARE Instructions: Head Injury Precautions ([facility]), Hematoma ([facility]) Additional Instructions: Please follow-up with your regular doctor. Use ice packs if needed. Please avoid narcotic use during this time of your as it could be dangerous to the fetus. Return for any worsening concerns.
[2017-08-26 08:52] VITALS: BP 111/76
== END 2017-08-26 09:07 | disposition home or self-care (01) ==
LOC: ER 07:18
DX: O9A.213 Injury, poisoning and certain other consequences of external causes complicating pregnancy, third trimester (principal); S00.83XA Contusion of other part of head, initial encounter; W01.0XXA Fall on same level from slipping, tripping and stumbling without subsequent striking against object, initial encounter; O99.333 Smoking (tobacco) complicating pregnancy, third trimester; Z3A.38 38 weeks gestation of pregnancy; Z88.5 Allergy status to narcotic agent
CPT/HCPCS: 99283

== ENCOUNTER 2017-10-16 09:11 | Emergency (ER) | payer MEDICAID ==
[2017-10-16 09:18] VITALS: BP 133/86
--- NOTE | 2017-10-16 09:37 | ER Document Report ---
ED Medical Screen (RME) - General Chief Complaint: Probable Seizure Stated Complaint: POSSIBLE SEIZURE Time Seen by Provider: 10/16/17 09:35 Notes: hx is difficult. pt states she has sz's and anxiety. does not take medicine for sz's and does not know who diagnosed them. last one 6 months ago but had two today. states shakes all over and bites tongue till it bleeds. TRAVEL OUTSIDE OF THE [place] 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 06/03 states had three seizures Renal/ Medical History: Denies: Hx Peritoneal Dialysis Psychiatric Medical History: Reports: Hx Anxiety, Hx Attention Deficit Hyperactivity Disorder Past Surgical History: Reports: Hx Section - Immunizations Immunizations up to date: Yes Hx Diphtheria, Pertussis, Tetanus Vaccination: Yes - 2017 History of Influenza Vaccine for 05/2017 - 10/2017 Season: Refused Physical Exam - Vital signs Vitals: Temp Pulse Resp BP Pulse Ox 98.6 F 98 20 133/86 H 99 10/16/17 09:17 10/16/17 09:17 10/16/17 09:17 10/16/17 09:17 10/16/17 09:17 Course - Vital Signs Vital signs: Temp Pulse Resp BP Pulse Ox 98.6 F 98 20 133/86 H 99 10/16/17 09:17 10/16/17 09:17 10/16/17 09:17 10/16/17 09:17 10/16/17 09:17
[2017-10-16] MEDS ORDERED: RINGERS SOLUTION,LACTATED 1,000 ML IV PRN (10:19)
--- NOTE | 2017-10-16 10:23 | ER Document Report ---
ED Seizure - General Chief Complaint: Probable Seizure Stated Complaint: POSSIBLE SEIZURE Time Seen by Provider: 10/16/17 09:35 Information source: Patient, Friend Notes: 22 years old female was brought in by the boyfriend because she had a seizure. She has previous full seizures in the past. But not in any antiseizure medications. It makes me think that she might be having pseudoseizures. Boyfriend explained that the seizure was grand mal seizure with stiffening of the whole body and afterward shaking. No incontinence of urine or feces. No tongue biting. Questionable post anesthesia confusion. She denies any fever chills or other constitutional symptoms denies any discomfort denies any headache dizziness neck pain chest pain abdominal pain nausea vomiting diarrhea. Denies any dysuria frequency urgency. - HPI Patient complains to provider of: History of seizures Severity: Moderate Can details of seizure be obtained/verified: No Episode witnessed (by whom): No Current seizure medications: No: Carbamazepine, Gabatin, Keppra, Lamictal, Phenytoin, Phenobarbital, Trileptal, Valproic acid, Vimpat, Other Preceding symptoms/context: denies: Recent illness/fever, Recent alcohol intake , Recent drug use, Sleep deprivation, Missed dose of meds, Changed meds or dosage, Somnolence, Other History of: denies: Brain tumor or mets, CVA, Hydrocephalus, Migraines, TBI, V/ P shunt, Other Character of seizure: No: Complete loss/conscious, Partial loss/conscious, Generalized shaking, Focal shaking, Staring, Incontinent stool, Incontinent bladder, Stopped breathing, Lost pulse, Other Post-ictal symptoms: No: None, Confusion, Headache, Lost motor, Lost sensation, Speech difficulty, Visual disturbance, Other Injuries: denies: None, Abdomen, Back, Chest, Face, Head, Lip, Mouth, Neck, Nose , Bit tongue, LUE, LLE, RUE, RLE - Related Data Allergies/Adverse Reactions: hydrocodone [From Vicodin] Allergy (Verified 10/16/17 09:31) tramadol Allergy (Verified 10/16/17 09:31) Past Medical History - General Information source: Patient - Social History Smoking Status: Current Every Day Smoker Chew tobacco use (# tins/day): No Frequency of alcohol use: None Drug Abuse: None Family History: Hypertension, Malignancy Patient has suicidal ideation: No Patient has homicidal ideation: No - Medical History Notes: Anesthesia, C-sections - Past Medical History Cardiac Medical History: Denies: None, Hx Atrial Fibrillation, Hx Congestive Heart Failure, Hx Coronary Artery Disease, Hx DVT, Hx Heart Attack, Hx Hypercholesterolemia, Hx Hypertension, Hx Peripheral Vascular Disease, Hx Pulmonary Embolism, Hx Heart Murmur, Other Pulmonary Medical History: Denies: None, Hx Asthma, Hx Bronchitis, Hx COPD, Hx Pneumonia, Hx Intubation , Hx Respiratory Failure, Hx Sleep Apnea, Hx Tuberculosis, Other EENT Medical History: Denies: None, Eyes, Ears, Nose, Throat, Other Neurological Medical History: Reports: 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 06/03 states had three seizures. Denies: None, Hx Cerebrovascular Accident, Hx Migraine, Other Endocrine Medical History: Denies: None, Hx Diabetes Mellitus Type 1, Hx Diabetes Mellitus Type 2, Hx Graves' Disease, Hx Hyperthyroidism, Hx Hypothyroidism, Other Malignancy Medical History: Denies: None, Hx Bone Cancer, Hx Brain Cancer, Hx Breast Cancer, Hx Cervical Cancer, Hx Colorectal Cancer, Hx Leukemia, Hx Liver Cancer, Hx Lung Cancer, Hx Lymphoma, Hx Ovarian Cancer, Hx Pancreatic Cancer, Hx Renal (Kidney) Cancer, Hx Skin Cancer, Other Psychiatric Medical History: Reports: Hx Anxiety, Hx Attention Deficit Hyperactivity Disorder Past Surgical History: Reports: Hx Section - Immunizations Immunizations up to date: Yes Hx Diphtheria, Pertussis, Tetanus Vaccination: Yes - 2016 Review of Systems - Review of Systems Constitutional: denies: No symptoms reported, See HPI, Chills, Diaphoresis, Fever, Malaise, Weakness, Other, Weight gain, Weight loss, Recent illness EENT: denies: No symptoms reported, See HPI, Eye pain, Eye discharge, Blurred vision, Tearing, Double vision, Ear pain, Ear discharge, Nose pain, Nose congestion, Nose discharge, Sinus pressure, Sinus discharge, Throat pain, Difficulty swallowing, Throat swelling, Mouth pain, Mouth swelling, Dental problem, Vertigo, Other Cardiovascular: denies: No symptoms reported, See HPI, Chest pain, Palpitations , Heart racing, Orthopnea, Dyspnea, Syncope, Dizziness, Lightheaded, Edema, Other, Paroxysmal Nocturnal Dysp Respiratory: denies: No symptoms reported, See HPI, Cough, Hurts to breathe, Hemoptysis, Short of breath, Sputum, Stridor, Wheezing, Other Gastrointestinal: denies: No symptoms reported, See HPI, Abdomen distended, Abdominal pain, Diarrhea, Nausea, Vomiting, Constipation, Blood streaked bowels , Poor appetite, Poor fluid intake, Blood in vomit, Black stools, Rectal bleeding, Last bowel movement, Fecal incontinence, Other Female Genitourinary: denies: No symptoms reported, See HPI, Last menstrual period, , Post menopausal, Heavy/abnormal periods, Irregular period, Vaginal bleeding, Vaginal discharge, Vaginal odor, Painful intercourse, Other Musculoskeletal: denies: No symptoms reported, See HPI, Back pain, Gout, Joint pain, Joint swelling, Muscle pain, Muscle stiffness, Neck pain, Deformity, Leg swelling, Ankle swelling, Other Skin: denies: No symptoms reported, See HPI, Change in color, Change in hair/ nails, Dryness, Lesions, Lumps, Rash, Other Neurological/Psychological: denies: No symptoms reported, See HPI, Confusion, Dementia, Depression, Hallucinations, Anxiety, Homicidal ideation, Sensory change, Weakness, Gait changes, Loss of power, Paralysis, Seizure, Lost consciousness, Headaches, Speech impairment, Numbness, Suicidal ideation, Tingling, Tremor, Other Physical Exam - Vital signs Vitals: Temp Pulse Resp BP Pulse Ox 98.6 F 98 20 133/86 H 99 10/16/17 09:17 10/16/17 09:17 10/16/17 09:17 10/16/17 09:17 10/16/17 09:17 - Notes Notes: PHYSICAL EXAMINATION: GENERAL: Well-appearing, well-nourished and in no acute distress. HEAD: Atraumatic, normocephalic. EYES: Pupils equal round and reactive to light, extraocular movements intact, conjunctiva are normal. ENT: Nares patent, oropharynx clear without exudates. Moist mucous membranes. NECK: Normal range of motion, supple without lymphadenopathy LUNGS: Breath sounds clear to auscultation bilaterally and equal. No wheezes rales or rhonchi. HEART: Regular rate and rhythm without murmurs ABDOMEN: Soft, nontender, nondistended abdomen. No guarding, no rebound. No masses appreciated. Female : deferred Musculoskeletal: Normal range of motion, no pitting or edema. No cyanosis. NEUROLOGICAL: Cranial nerves grossly intact. Normal speech, normal gait. Normal sensory, motor exams PSYCH: Normal mood, normal affect. SKIN: Warm, Dry, normal turgor, no rashes or lesions noted. Course - Re-evaluation Re-evalutation: 10/16/17 11:11 Pros and cons of signing AMA was discussed with patient. In spite of that she refused and went home signing AMA - Vital Signs Vital signs: Temp Pulse Resp BP Pulse Ox 98.6 F 98 20 133/86 H 99 10/16/17 09:17 10/16/17 09:17 10/16/17 09:17 10/16/17 09:17 10/16/17 09:17 - Laboratory Result Diagrams: 10/16/17 10:17 10/16/17 10:17 Laboratory results interpreted by me: 10/16/17 10/16/17 10:17 10:17 RBC 3.57 L Hgb 10.2 L Hct 30.4 L RDW 15.5 H Chloride 108 H AST 11 L Discharge - Discharge Clinical Impression: Pseudoseizures Disposition: AGAINST MEDICAL ADVICE
[2017-10-16 10:27] LABS: ABSOLUTE EOSINOPHILS # (AUTO) 0.1 10^3/uL (0.0-0.6); ABSOLUTE LYMPHOCYTES (AUTO) 1.9 10^3/uL (0.5-4.7); ABSOLUTE MONOCYTES (AUTO) 0.3 10^3/uL (0.1-1.4); ABSOLUTE NEUT (AUTO) 4.3 10^3/uL (1.7-8.2); BASOPHILS % (AUTO) 0.2 % (0-2); EOSINOPHILS % (AUTO) 1.4 % (0-6); HEMATOCRIT 30.4 % (36.0-47.0); HEMOGLOBIN 10.2 g/dL (12.0-15.5); LYMPHOCYTES % (AUTO) 28.7 % (13-45); MEAN CORPUSCULAR HEMOGLOBIN 28.4 pg (27.0-33.4); MEAN CORPUSCULAR HGB CONC 33.4 g/dL (32.0-36.0); MEAN CORPUSCULAR VOLUME 85 fl (80-97); PLATELET COUNT 321 10^3/uL (150-450); RED BLOOD COUNT 3.57 10^6/uL (3.72-5.28); RED CELL DISTRIBUTION WIDTH 15.5 % (11.5-14.0); SEGMENTED NEUTROPHILS % (AUTO) 65.7 % (42-78); TOTAL CELLS COUNTED % (AUTO) 100 %; WHITE BLOOD COUNT 6.5 10^3/uL (4.0-10.5)
[2017-10-16 10:53] LABS: ALANINE AMINOTRANSFERASE 12 U/L (9-52); ALBUMIN 3.6 g/dL (3.5-5.0); ALKALINE PHOSPHATASE 81 U/L (38-126); ANION GAP 8 (5-19); ASPARTATE AMINO TRANSFERASE 11 U/L (14-36); BILIRUBIN,DIRECT 0.2 mg/dL (0.0-0.4); BILIRUBIN,TOTAL 0.2 mg/dL (0.2-1.3); BLOOD UREA NITROGEN 7 mg/dL (7-20); CALCIUM 9.1 mg/dL (8.4-10.2); CARBON DIOXIDE 29 mmol/L (22-30); CHLORIDE 108 mmol/L (98-107); GLUCOSE 79 mg/dL (75-110); POTASSIUM 4.3 mmol/L (3.6-5.0); SODIUM 144.8 mmol/L (137-145); TOTAL PROTEIN 6.4 g/dL (6.3-8.2)
== END 2017-10-16 11:15 | disposition left against medical advice (07) ==
LOC: ER 09:11
DX: F44.5 Conversion disorder with seizures or convulsions (principal); F17.200 Nicotine dependence, unspecified, uncomplicated
CPT/HCPCS: 36415; 80053; 83735; 85025; 99284

== ENCOUNTER 2017-12-10 03:41 | Emergency (ER) | payer MEDICAID, OTHER ==
[2017-12-10 03:47] VITALS: BP 93/65
[2017-12-10] MEDS ORDERED: OXYCODONE-ACETAMINOPHEN 5-325 MG TABLET PO ONE (04:31)
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
== END 2017-12-10 04:50 | disposition home or self-care (01) ==
LOC: ER 03:41
DX: S60.051A Contusion of right little finger without damage to nail, initial encounter (principal); W23.1XXA Caught, crushed, jammed, or pinched between stationary objects, initial encounter; Z88.6 Allergy status to analgesic agent
CPT/HCPCS: 99283

== ENCOUNTER 2018-03-05 05:20 | Emergency (ER) | payer SELFPAY ==
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
== END 2018-03-05 05:35 | disposition left against medical advice (07) ==
LOC: ER 05:20
DX: Z53.21 Procedure and treatment not carried out due to patient leaving prior to being seen by health care provider (principal)

== ENCOUNTER → 2019-08-08 | Outpatient (CLI) | payer OTHER | LOC: LAB 17:48 | PROVIDERS: ATTEND Internal Medicine Pulmonary Disease | DX: Z51.81 Encounter for therapeutic drug level monitoring (principal); Z79.899 Other long term (current) drug therapy | CPT/HCPCS: 36415; 80185 ==

== ENCOUNTER 2019-09-26 16:47 | Emergency (ER) | payer SELFPAY ==
[2019-09-26 16:57] VITALS: BP 116/75
[2019-09-26] MEDS ORDERED: IBUPROFEN 600 MG TABLET PO ONE (17:12)
[2019-09-26] MEDS ORDERED: CIPROFLOXACIN HCL/DEXAMETH OTIC DROP 7.5 ML AD ONE (17:12)
--- NOTE | 2019-09-26 17:14 | ER Document Report ---
HPI - HPI Time Seen by Provider: 09/26/19 17:07 Notes: Otherwise healthy 24-year-old female presents emergency department chief complaint of right ear pain. Patient reports pain going on for the last 3 days. Denies being in any abnormal bodies of water. Denies any drainage from the area. Denies any fevers. - REPRODUCTIVE Reproductive: DENIES: : Past Medical History - General Information source: Patient - Social History Smoking Status: Never Smoker Frequency of alcohol use: None Drug Abuse: None Family History: Hypertension, Malignancy - Past Medical History Cardiac Medical History: Denies: Hx Atrial Fibrillation, Hx Congestive Heart Failure, Hx Coronary Artery Disease, Hx DVT, Hx Heart Attack, Hx Hypercholesterolemia, Hx Hypertension, Hx Peripheral Vascular Disease, Hx Pulmonary Embolism, Hx Heart Murmur Pulmonary Medical History: Denies: Hx Asthma, Hx Bronchitis, Hx COPD, Hx Pneumonia, Hx Intubation, Hx Respiratory Failure, Hx Sleep Apnea, Hx Tuberculosis Neurological Medical History: Reports: 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 05/28/16 states had three seizures. Denies: Hx Cerebrovascular Accident, Hx Migraine Endocrine Medical History: Denies: Hx Diabetes Mellitus Type 1, Hx Diabetes Mellitus Type 2, Hx Graves' Disease, Hx Hyperthyroidism, Hx Hypothyroidism Renal/ Medical History: Denies: Hx Peritoneal Dialysis Malignancy Medical History: Denies: Hx Bone Cancer, Hx Brain Cancer, Hx Breast Cancer, Hx Cervical Cancer, Hx Colorectal Cancer, Hx Leukemia, Hx Liver Cancer, Hx Lung Cancer, Hx Lymphoma, Hx Ovarian Cancer, Hx Pancreatic Cancer, Hx Renal (Kidney) Cancer, Hx Skin Cancer Psychiatric Medical History: Reports: Hx Anxiety, Hx Attention Deficit Hyperactivity Disorder Past Surgical History: Reports: Hx Section - Immunizations Immunizations up to date: Yes Hx Diphtheria, Pertussis, Tetanus Vaccination: Yes - 2017 Vertical Provider Document - CONSTITUTIONAL Notes: PHYSICAL EXAMINATION: GENERAL: Well-appearing, well-nourished and in no acute distress. HEAD: Atraumatic, normocephalic. EYES: Pupils equal round extraocular movements intact, conjunctiva are normal. ENT: Nares patent, right TM erythematous and retracted, right canal macerated and erythematous. Left TM and canal unremarkable. No mastoid tenderness bilaterally. NECK: Normal range of motion LUNGS: No respiratory distress Musculoskeletal: Normal range of motion NEUROLOGICAL: Normal speech, normal gait. PSYCH: Normal mood, normal affect. SKIN: Warm, Dry, normal turgor, no rashes or lesions noted. - INFECTION CONTROL TRAVEL OUTSIDE OF THE [place] IN LAST 30 DAYS: No Course - Re-evaluation Re-evalutation: Exam consistent with otitis externa and otitis media. Patient will be placed on appropriate antibiotics and discharged home. - Vital Signs Vital signs: Temp Pulse Resp BP Pulse Ox 99 F 79 16 116/75 98 09/26/19 16:55 09/26/19 16:55 09/26/19 16:55 09/26/19 16:55 09/26/19 16:55 Discharge - Discharge Clinical Impression: Otitis externa Qualifiers: Otitis externa type: unspecified type Chronicity: acute Laterality: bilateral Qualified Code(s): H60.503 - Unspecified acute noninfective otitis externa, bilateral Otitis media Qualifiers: Otitis media type: unspecified Chronicity: acute Qualified Code(s): H66.90 - Otitis media, unspecified, unspecified ear Condition: Stable Disposition: HOME, SELF-CARE Additional Instructions: Your child has been diagnosed as having an ear infection. Please give them the amoxicillin twice daily for 10 days. Follow-up with your technical sales associate as needed. Return if your child becomes lethargic, has persistent vomiting, b ecomes confused, has facial swelling, worsening pain despite antibiotics, or any other symptoms that are concerning to you. You should give your child ibuprofen or Tylenol as needed for discomfort. Apply 4 gtts of ciprodex into the affected ear twice daily for 7 days. Prescriptions: Amoxicillin 1 tab PO TID #30 tab
== END 2019-09-26 17:50 | disposition home or self-care (01) ==
LOC: ER 16:47
DX: H60.503 Unspecified acute noninfective otitis externa, bilateral (principal); H66.90 Otitis media, unspecified, unspecified ear; H92.01 Otalgia, right ear
CPT/HCPCS: 99282; J3490

== ENCOUNTER 2020-05-04 18:59 | Emergency (ER) | payer OTHER ==
--- NOTE | 2020-05-04 19:14 | EKG REPORT ---
SEVERITY:- ABNORMAL ECG - SINUS TACHYCARDIA BIATRIAL ABNORMALITIES LEFT AXIS DEVIATION BORDERLINE T ABNORMALITIES, INFERIOR LEADS : Confirmed by: Hung Betancur 04-May-2020 19:13:49
[2020-05-04] MEDS ORDERED: ACETAMINOPHEN 325 MG TABLET PO ONE ×2 (19:41→23:30)
[2020-05-04] MEDS ORDERED: DIPH/PERTUSS(ACELL)/TETANUS VAC/PF 0.5 ML SYR (>=10YO) IM ONE ×2 (19:41→23:30)
[2020-05-04] MEDS ORDERED: NORMAL SALINE 1000 ML 1,000 ML IV ONE (19:43)
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
[2020-05-04 20:23] LABS: HEMATOCRIT 36.5 % (36.0-47.0); HEMOGLOBIN 12.9 g/dL (12.0-15.5); MEAN CORPUSCULAR HEMOGLOBIN 31.4 pg (27.0-33.4); MEAN CORPUSCULAR HGB CONC 35.4 g/dL (32.0-36.0); MEAN CORPUSCULAR VOLUME 89 fl (80-97); PLATELET COUNT 178 10^3/uL (150-450); RED BLOOD COUNT 4.12 10^6/uL (3.72-5.28); RED CELL DISTRIBUTION WIDTH 13.8 % (11.5-14.0); WHITE BLOOD COUNT 17.6 10^3/uL (4.0-10.5)
[2020-05-04 20:31] LABS: ALBUMIN 4.6 g/dL (3.5-5.0); ALKALINE PHOSPHATASE 68 U/L (38-126); ANION GAP 11 (5-19); ASPARTATE AMINO TRANSFERASE 22 U/L (14-36); BILIRUBIN,DIRECT 0.2 mg/dL (0.0-0.4); BLOOD UREA NITROGEN 12 mg/dL (7-20); CALCIUM 9.4 mg/dL (8.4-10.2); CARBON DIOXIDE 24 mmol/L (22-30); CHLORIDE 99 mmol/L (98-107); GLUCOSE 109 mg/dL (75-110); POTASSIUM 3.9 mmol/L (3.6-5.0); TOTAL PROTEIN 7.3 g/dL (6.3-8.2)
[2020-05-04 20:41] LABS: APPEARANCE,URINE CLEAR; BILIRUBIN,URINE NEGATIVE (NEGATIVE); COLOR,URINE YELLOW; GLUCOSE, URINE NEGATIVE (NEGATIVE); KETONES,URINE 20 mg/dL (NEGATIVE); LEUKOCYTE ESTERASE,URINE NEGATIVE (NEGATIVE); NITRITE,URINE NEGATIVE (NEGATIVE); PROTEIN,URINE NEGATIVE (NEGATIVE); URINE SPECIFIC GRAVITY 1.015
[2020-05-04 20:41] LABS: ABSOLUTE LYMPHOCYTES# (MANUAL) 0.4 10^3/uL (0.5-4.7); BAND NEUTROPHILS % (MANUAL) 3 % (3-5); BASOPHILS % (MANUAL) 0 % (0-2); EOSINOPHILS % (MANUAL) 0 % (0-6); LYMPHOCYTES % (MANUAL) 2 % (13-45); MONOCYTES % (MANUAL) 0 % (3-13); SEGMENTED NEUTROPHILS % (MAN) 95 % (42-78); TOTAL CELLS COUNTED 100
[2020-05-04 20:42] LABS: PLATELET COMMENT ADEQUATE; TEAR DROP CELLS 1+
[2020-05-04 20:49] LABS: URINE BARBITURATES SCREEN NEGATIVE; URINE BENZODIAZEPINES SCREEN NEGATIVE; URINE METHADONE SCREEN NEGATIVE; URINE PHENCYCLIDINE SCREEN NEGATIVE
[2020-05-04 21:00] LABS: URINE COCAINE SCREEN UNCONFIRMED POSITIVE; URINE MARIJUANA (THC) SCREEN UNCONFIRMED POSITIVE
--- NOTE | 2020-05-04 21:18 | RADIOLOGY REPORT (SQ) ---
XR CHEST 1 VIEW HISTORY: Chest wall pain. COMPARISON: None. FINDINGS: The heart size is within normal limits. There is no pulmonary vascular congestion. No consolidation, pleural effusion, or pneumothorax is seen. No acute bony findings are seen. IMPRESSION: No evidence of acute cardiopulmonary disease.
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
[2020-05-04] MEDS ORDERED: KETOROLAC TROMETHAMINE INJ/PF 30 MG/1 ML SDV IV ONE (23:57)
[2020-05-05 00:09] LABS: A TYPE INFLUENZA AG NEGATIVE (NEGATIVE); B INFLUENZA AG NEGATIVE (NEGATIVE)
[2020-05-05] MEDS ORDERED: NORMAL SALINE 1000 ML 1,000 ML IV ONE (00:38)
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
[2020-05-05] MEDS ORDERED: CEFTRIAXONE 1 GM/D5W RTU 1 GM/50 ML RTUPB IV ONE (02:22)
[2020-05-05 03:09] VITALS: BP 105/68
[2020-05-05] MEDS ORDERED: KETOROLAC TROMETHAMINE INJ/PF 30 MG/1 ML SDV IV ONE (03:22)
== END 2020-05-05 03:35 | disposition home or self-care (01) ==
LOC: ER 18:59
DX: N39.0 Urinary tract infection, site not specified (principal); D72.829 Elevated white blood cell count, unspecified; M54.5 Low back pain; R07.89 Other chest pain; M54.6 Pain in thoracic spine; M79.10 Myalgia, unspecified site; R51 Headache; R06.02 Shortness of breath; R50.9 Fever, unspecified; Z20.828 Contact with and (suspected) exposure to other viral communicable diseases; V49.9XXA Car occupant (driver) (passenger) injured in unspecified traffic accident, initial encounter; Z23 Encounter for immunization
CPT/HCPCS: 93005; 96376; 99285; 96361 ×2; 90471; 96374; 96375; 36415; 87040; 87086; 82550; 83605; 85025; 87635; 81025; 87077; 87088; 80053; 81001; 84484; 87186; 80307; 87804; 87150 ×26; 71045; 72110; 72070; 73590; 70450; 71275; 72125; 74174; 90715; 93010; J1885; J7030 ×2; J0696; C9803

== ENCOUNTER 2020-05-06 10:09 | Emergency (ER) | payer OTHER ==
[2020-05-06 10:16] VITALS: BP 109/57
--- NOTE | 2020-05-06 10:54 | ER Document Report ---
ED Medical Screen (RME) - General Chief Complaint: Abnormal Lab Results Stated Complaint: ABNORMAL LABS Time Seen by Provider: 05/06/20 10:51 Mode of Arrival: Ambulatory Information source: Patient Notes: 24-year-old female presented to ED for complaint of still having chest tightness and some low back pain. She was called to return to the emergency room because she had positive blood cultures. Patient will get redraw of blood and be seen by 1 of the primary care providers. I have greeted and performed a rapid initial assessment of this patient. A comprehensive ED assessment and evaluation of the patient, analysis of test results and completion of medical decision making process will be conducted by an additional ED providers. TRAVEL OUTSIDE OF THE [place] IN LAST 30 DAYS: No - Related Data Allergies/Adverse Reactions: hydrocodone [From Vicodin] Allergy (Verified 05/06/20 10:52) tramadol Allergy (Verified 05/06/20 10:52) Past Medical History - Past Medical History Cardiac Medical History: Denies: Hx Atrial Fibrillation, Hx Congestive Heart Failure, Hx Coronary Artery Disease, Hx DVT, Hx Heart Attack, Hx Hypercholesterolemia, Hx Hypertension, Hx Peripheral Vascular Disease, Hx Pulmonary Embolism, Hx Heart Murmur Pulmonary Medical History: Denies: Hx Asthma, Hx Bronchitis, Hx COPD, Hx Pneumonia, Hx Intubation, Hx Respiratory Failure, Hx Sleep Apnea, Hx Tuberculosis Neurological Medical History: Reports: 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 05/28/16 states had three seizures. Denies: Hx Cerebrovascular Accident, Hx Migraine Endocrine Medical History: Denies: Hx Diabetes Mellitus Type 1, Hx Diabetes Mellitus Type 2, Hx Graves' Disease, Hx Hyperthyroidism, Hx Hypothyroidism Renal/ Medical History: Denies: Hx Peritoneal Dialysis Malignancy Medical History: Denies: Hx Bone Cancer, Hx Brain Cancer, Hx Breast Cancer, Hx Cervical Cancer, Hx Colorectal Cancer, Hx Leukemia, Hx Liver Cancer, Hx Lung Cancer, Hx Lymphoma, Hx Ovarian Cancer, Hx Pancreatic Cancer, Hx Renal (Kidney) Cancer, Hx Skin Cancer Psychiatric Medical History: Reports: Hx Anxiety, Hx Attention Deficit Hyperactivity Disorder Past Surgical History: Reports: Hx Section - Immunizations Immunizations up to date: Yes Hx Diphtheria, Pertussis, Tetanus Vaccination: Yes - 2016 Physical Exam - Vital signs Vitals: Temp Pulse Resp BP Pulse Ox 98.2 F 89 16 109/57 L 99 05/06/20 10:15 05/06/20 10:15 05/06/20 10:15 05/06/20 10:15 05/06/20 10:15 Course - Vital Signs Vital signs: Temp Pulse Resp BP Pulse Ox 98.2 F 89 16 109/57 L 99 05/06/20 10:15 05/06/20 10:15 05/06/20 10:15 05/06/20 10:15 05/06/20 10:15
[2020-05-06 11:24] LABS: ABSOLUTE EOSINOPHILS # (AUTO) 0.1 10^3/uL (0.0-0.6); ABSOLUTE LYMPHOCYTES (AUTO) 1.3 10^3/uL (0.5-4.7); ABSOLUTE MONOCYTES (AUTO) 0.2 10^3/uL (0.1-1.4); ABSOLUTE NEUT (AUTO) 3.8 10^3/uL (1.7-8.2); BASOPHILS % (AUTO) 0.3 % (0-2); EOSINOPHILS % (AUTO) 1.6 % (0-6); HEMATOCRIT 37.7 % (36.0-47.0); HEMOGLOBIN 13.1 g/dL (12.0-15.5); LYMPHOCYTES % (AUTO) 23.4 % (13-45); MEAN CORPUSCULAR HEMOGLOBIN 31.3 pg (27.0-33.4); MEAN CORPUSCULAR HGB CONC 34.9 g/dL (32.0-36.0); MEAN CORPUSCULAR VOLUME 90 fl (80-97); MONOCYTES % (AUTO) 4.4 % (3-13); PLATELET COUNT 178 10^3/uL (150-450); SEGMENTED NEUTROPHILS % (AUTO) 70.3 % (42-78); TOTAL CELLS COUNTED % (AUTO) 100 %; WHITE BLOOD COUNT 5.4 10^3/uL (4.0-10.5)
[2020-05-06 11:50] LABS: ALBUMIN 4.5 g/dL (3.5-5.0); ALKALINE PHOSPHATASE 90 U/L (38-126); ANION GAP 9 (5-19); ASPARTATE AMINO TRANSFERASE 52 U/L (14-36); BILIRUBIN,DIRECT 0.3 mg/dL (0.0-0.4); BILIRUBIN,TOTAL 0.4 mg/dL (0.2-1.3); BLOOD UREA NITROGEN 9 mg/dL (7-20); CALCIUM 9.5 mg/dL (8.4-10.2); CARBON DIOXIDE 26 mmol/L (22-30); CHLORIDE 106 mmol/L (98-107); GLUCOSE 97 mg/dL (75-110); POTASSIUM 4.2 mmol/L (3.6-5.0); TOTAL PROTEIN 7.3 g/dL (6.3-8.2)
== END 2020-05-06 13:48 | disposition left against medical advice (07) ==
LOC: ER 10:09
DX: R78.81 Bacteremia (principal); R07.89 Other chest pain; M54.5 Low back pain; Z88.6 Allergy status to analgesic agent; Z88.5 Allergy status to narcotic agent; Z53.29 Procedure and treatment not carried out because of patient's decision for other reasons
CPT/HCPCS: 36415; 80053; 83690; 84703; 85025; 87040; 99281